=== PATIENT | male | born 1990 | race African-American/Black ===

== ENCOUNTER 2020-01-26 15:21 | Emergency (ER) | payer MEDICAID ==
[~2020-01-26] VITALS: Ht 170.2 cm; Wt 62.0 kg
[~2020-01-26 15:21] MED LIST: NAPR-679; PRED5TAB
[2020-01-26 15:31] VITALS: BP 134/83
[2020-01-26] MEDS ORDERED: LORAZEPAM 0.5MG TABLET PO ONE (16:45)
== END 2020-01-26 17:36 | disposition home or self-care (01) ==
LOC: ER 15:21
DX: R22.0 Localized swelling, mass and lump, head (principal); F41.9 Anxiety disorder, unspecified
CPT/HCPCS: 82962; 99283